=== PATIENT | female | born 1990 | race American Indian/Alaskan Native ===

== ENCOUNTER 2017-05-30 17:45 | Emergency (ER) | payer MEDICAID, OTHER | END 2017-05-30 19:10 | disposition left against medical advice (07) | LOC: DL.ED 17:45 | DX: Z53.21 Procedure and treatment not carried out due to patient leaving prior to being seen by health care provider (principal) ==

== ENCOUNTER 2018-06-25 19:00 | Emergency (ER) | payer MEDICAID, OTHER ==
[2018-06-25 19:18] VITALS: BP 124/73
== END 2018-06-25 21:02 | disposition left against medical advice (07) ==
LOC: DL.ED 19:00
DX: Z53.21 Procedure and treatment not carried out due to patient leaving prior to being seen by health care provider (principal)
CPT/HCPCS: 81001

== ENCOUNTER 2023-11-17 12:06 | Emergency (ER) | payer MEDICAID ==
[2023-11-17 12:25] VITALS: BP 110/98; PULSE 96
[2023-11-17 13:12] LABS: BASOPHILS PERCENT AUTO 0.3 % (0.0-1.0); EOSINOPHILS PERCENT AUTO 2.8 % (1.0-3.0); HEMATOCRIT 40.8 % (37.0-47.0); HEMOGLOBIN 12.8 g/dL (12.0-16.0); LYMPHOCYTES PERCENT AUTO 27.1 % (20.5-50.1); MEAN CORPUSCULAR HEMOGLOBIN 22.7 pg (27.0-34.0); MEAN CORPUSCULAR HGB CONC 31.4 g/dL (33.0-35.0); MEAN CORPUSCULAR VOLUME 72.5 fL (80-100); MONOCYTES PERCENT AUTO 6.6 % (2-8); NEUTROPHILS PERCENT AUTO 63.2 % (42.2-75.2); PLATELET COUNT,PLT 377 10^3/uL (150-450); RED BLOOD CELL COUNT 5.63 10^6/uL (4.2-5.4); WHITE BLOOD CELL COUNT,WBC 9.6 10^3/uL (5.0-10.0)
[2023-11-17] MEDS: Sodium Chloride 0.9% 1,000 ML IV ONE (13:20)
[2023-11-17] MEDS: Sodium Chloride 0.9% 10 ML Syringe FLUSH PRN (13:20)
[2023-11-17] MEDS: Ketorolac 30 MG/ML SDV IVPUSH ONE (13:20)
[2023-11-17 13:25] LABS: PROTHROMBIN TIME 10.4 SEC (9.0-12.0); PTT,PARTIAL THROMBOPLSTIN TIME 29.2 SEC (22.0-34.0)
[2023-11-17 13:30] LABS: ALANINE AMINOTRANSFERASE,ALT 37 U/L (14-59); ALBUMIN 2.8 g/dL (3.4-5.0); ALKALINE PHOSPHATASE 208 U/L (46-116); ANION GAP 5.9 mEq/L (7-13); ASPARTATE AMNIOTRANSFERASE,AST 21 U/L (15-37); B-TYPE NATRIURETIC PEPTIDE,BNP 15 pg/ml (0-100); BILIRUBIN TOTAL 0.3 mg/dL (0.2-1.0); BLOOD UREA NITROGEN,BUN 10 mg/dL (7-18); BUN/CREATININE RATIO 11.1 (No establ ref range); C-REACTIVE PROTEIN 1.56 ng/dL (<=0.50); CALCIUM 8.8 mg/dL (8.5-10.1); CARBON DIOXIDE,CO2 32 mmol/L (21-32); CHLORIDE,CL 103 mmol/L (98-107); EST CRCL DRUG DOSING (CG) 85.65 mL/min; GLUCOSE RANDOM 101 mg/dL (70-99); POTASSIUM,K 3.9 mmol/L (3.5-5.1); PROTEIN TOTAL,TP 7.3 g/dL (6.4-8.2); SODIUM,NA 137 mmol/L (136-145)
[2023-11-17 13:31] LABS: A/G RATIO 0.62; ESTIMATED GFR 86 mL/min (>=60); LACTIC ACID 0.7 mmol/L (0.4-2.0)
[2023-11-17 13:43] LABS: HCG QUALITATIVE,SERUM NEGATIVE (NEGATIVE)
[2023-11-17] MEDS: HYDROmorphone 1 MG/ML Syringe IVPUSH ONE (13:59)
[2023-11-17] MEDS: Orphenadrine 60 MG/2 ML Inj IM ONE (14:41)
[2023-11-17] MEDS: Iopamidol 755 Mg/ML 100 ML Bottle IVPUSH ONE (14:42)
== END 2023-11-17 16:08 | disposition left against medical advice (07) ==
LOC: DL.ED 12:06
DX: R07.89 Other chest pain (principal); R06.02 Shortness of breath; E11.9 Type 2 diabetes mellitus without complications; E66.9 Obesity, unspecified; F17.210 Nicotine dependence, cigarettes, uncomplicated; Z79.84 Long term (current) use of oral hypoglycemic drugs; Z79.899 Other long term (current) drug therapy; Z53.29 Procedure and treatment not carried out because of patient's decision for other reasons; Z68.43 Body mass index [BMI] 50.0-59.9, adult
CPT/HCPCS: 36415; 71260; 80053; 82947; 83605; 83880; 84145; 84484; 84703; 85025; 85379; 85610; 85730; 86140; 93005; 93010; 96361; 96372; 96374; 99284; 99285-25; J1885; J2360; J3490; J7030; Q9967

== ENCOUNTER 2025-03-22 14:09 | Emergency (ER) | payer MEDICAID ==
[2025-03-22] MEDS: Ibuprofen 800 MG Tab PO ONE (14:33)
[2025-03-22 14:34] LABS: APPEARANCE,URINE SLIGHTLY CLOUDY (CLEAR); BILIRUBIN,URINE NEGATIVE (NEGATIVE); COLOR,URINE YELLOW (YELLOW); GLUCOSE,URINE NEGATIVE (NEGATIVE); KETONES,URINE NEGATIVE (NEGATIVE); LEUKOCYTE ESTERASE,URINE SMALL (NEGATIVE); NITRITE,URINE NEGATIVE (NEGATIVE); OCCULT BLOOD,URINE TRACE-INTACT (NEGATIVE); PROTEIN,URINE TRACE (NEGATIVE)
[2025-03-22 14:47] LABS: BACTERIA,URINE MODERATE /HPF (0-FEW/HPF); EPITHELIAL CELLS,URINE MANY /HPF (NOT SEEN); MUCUS,URINE OCCASIONAL /LPF (NOT SEEN); RBC,URINE 0-5 /HPF (0-5); WBC,URINE 50-75 /HPF (0-5/HPF)
[2025-03-22 15:12] VITALS: BP 111/52; PULSE 81
[2025-03-22] MEDS: Take Home: Cephalexin 500 MG Cap, 6 Cap Pack PO ONE (15:31)
== END 2025-03-22 15:32 | disposition home or self-care (01) ==
LOC: DL.ED 14:09
DX: N39.0 Urinary tract infection, site not specified (principal); M54.9 Dorsalgia, unspecified; E11.9 Type 2 diabetes mellitus without complications; Z79.890 Hormone replacement therapy; Z79.899 Other long term (current) drug therapy
CPT/HCPCS: 81001; 87086; 99284; A9270; 99283

== ENCOUNTER 2025-05-23 15:26 | Emergency (ER) | payer MEDICAID ==
[2025-05-23] MEDS ORDERED: Sodium Chloride 0.9% 10 ML Syringe FLUSH PRN (15:35)
[2025-05-23] MEDS ORDERED: Iopamidol 612 MG/ML 100 ML Bottle IVPUSH ONE (15:35)
[2025-05-23] MEDS: Ondansetron 4 MG/2 ML SDV IVPUSH ONE (16:22)
[2025-05-23 17:36] VITALS: BP 126/56; PULSE 65
== END 2025-05-23 18:19 | disposition home or self-care (01) ==
LOC: DL.ED 15:26
DX: N39.0 Urinary tract infection, site not specified (principal); R11.2 Nausea with vomiting, unspecified; E11.9 Type 2 diabetes mellitus without complications; E66.9 Obesity, unspecified; Z68.42 Body mass index [BMI] 45.0-49.9, adult; Z90.49 Acquired absence of other specified parts of digestive tract; Z79.890 Hormone replacement therapy; Z79.899 Other long term (current) drug therapy
CPT/HCPCS: 74177; 96374; 99284; J2405; 99283